=== PATIENT | male | born 1960 | race Caucasian/White ===

== ENCOUNTER → 2021-04-12 | Outpatient (CLI) | payer BC, OTHER | LOC: SJCVCIMAG 09:16 | PROVIDERS: ATTEND Internal Medicine Cardiovascular Disease | DX: I08.1 Rheumatic disorders of both mitral and tricuspid valves (principal); I11.9 Hypertensive heart disease without heart failure; I48.91 Unspecified atrial fibrillation ==

== ENCOUNTER → 2021-04-19 | Outpatient (CLI) | payer BC, OTHER ==
[~2021-04-19] VITALS: Ht 182.9 cm; Wt 127.0 kg
[~2021-04-19] MED LIST: ARMOUR THYROID60 M1 PO; BYSTOLIC 5 MG5 MG PO; LISINOPRIL10 MG PO; MELOXICAM7.5 MG PO; PACERONE 200 M200 M1 PO; ROSUVASTATIN CA20 MG PO; XARELTO20 MG PO
[2021-04-19 08:34] LABS: CALCIUM 8.8 mg/dL (8.5-10.1); CREATININE 1.6 mg/dL (0.7-1.3); POTASSIUM 4.7 mmol/L (3.5-5.1)
[2021-04-19 08:42] LABS: ALBUMIN 3.7 g/dL (3.4-5.0); TOTAL BILIRUBIN 0.6 mg/dL (0.2-1.0); TOTAL PROTEIN 6.7 g/dL (6.4-8.2)
--- NOTE | 2021-04-19 10:48 | TEE ---
[facility] [place] [address] TRANSESOPHAGEAL ECHOCARDIOGRAM Name: JOHN DYER Room #: REG [facility].#: [id number] Admission: 04/19/21 Attend Phys: Denver Gaitan MD, Discharge: Date of : 64 Report #: [id number] THIS REPORT FOR: cc: Ravi Cruz MD, Bryan W. MD Santiago, Patrick MD [facility] ~ APPROVED REPORT Study performed: 04/19/2021 07:41:38 EXAM: Comprehensive 2D, Doppler, and color-flow Echocardiogram Patient Location: Out-Patient Room #: 9 Status: routine BSA: 2.48 HR: 63 bpm BP: 115/78 mmHg Rhythm: Atrial Fibrillation Other Information Study Quality: Good Indications Atrial Fibrillation Echo Enhancing Agent Indication: Rule out Shunt Agent(s) / Amount(s) Used: Agitated Saline 7 cc Procedure After obtaining informed consent, patient underwent transesophageal echo in the [employer]. Type of Sedation : Conscious Sedation Sedation was administered by Nurse. Sedation start time: 0750 Case end Time: 804 Sedation was achieved intravenously with: Versed (8 mg) Fentanyl (75 mcg) Transesophageal probe was inserted and advanced into esophagus without difficulty by Denver Gaitan MD. Echo enhancement indication: R/O Septal defect. Echo enhancement agent administered: Agitated Saline The ELIER was performed without complications. Synchronized Cardioversion attempted: Unsuccessful at 120 Joules x1, [facility] [address] [place] [address] TRANSESOPHAGEAL ECHOCARDIOGRAM Name: JOHN DYER [id number] Admission: 04/19/21 Attend Phys: Denver Gaitan, Discharge: Date of : 64 Report #: [id number] 150 Joules x 1 and 200 Joules x 1 Throughout the procedure, the blood pressure, pulse oximetry, cardiac rhythm, and rate were monitored. The patient tolerated the procedure without adverse effects. Recovery from conscious sedation was uneventful and vital signs were stable. Left Ventricle The left ventricle is normal size. There is normal LV segmental wall motion. There is normal left ventricular wall thickness. Left ventricular systolic function is borderline. LVEF is 50%. Right Ventricle The right ventricle is normal size. The right ventricular systolic function is normal. Atria The left atrium size is normal. Interatrial septum is intact with evidence of a small PFO The right atrium size is normal. Aortic Valve The aortic valve is normal in structure. No aortic regurgitation is present. There is no aortic valvular stenosis. Mitral Valve The mitral valve is normal in structure. Mild mitral regurgitation. No evidence of mitral valve stenosis. Tricuspid Valve The tricuspid valve is normal in structure. There is no tricuspid valve regurgitation noted. Pulmonic Valve The pulmonary valve is normal in structure. There is no pulmonic valvular regurgitation. Great Vessels The aortic root is normal in size. Pericardium There is no pericardial effusion. <Conclusion> Consent was obtained Timeout performed Esophageal probe was advanced without difficulty [facility] [address] [place] [address] TRANSESOPHAGEAL ECHOCARDIOGRAM Name: JOHN DYER Room #: REG [facility].#: [id number] Admission: 04/19/21 Attend Phys: Denver Gaitan, Discharge: Date of : 64 Report #: [id number] normal left ventricular size/wall thickness and ejection fraction 50% Normal right ventricular size/function Normal atrial size Color-flow Doppler study was performed of the aortic/mitral/tricuspid/pulmonary valve Normal aortic valve structure and function Mild mitral valve insufficiency No tricuspid valve insufficiency Normal aortic root size No pericardial effusion A small PFO detected by bubble study. Patient was shocked 120/150/2 100 J of biphasic mode. Patient remained and atrial fibrillation Patient tolerated procedure well. <ELECTRONICALLY SIGNED> By: Denver Gaitan MD, FACC 04/19/21 1048 1048 1048 Denver Gaitan MD, FACC /INF
== END | disposition home or self-care (01) ==
LOC: CATH 06:28
PROVIDERS: ATTEND Internal Medicine
DX: I48.91 Unspecified atrial fibrillation (principal); I34.9 Nonrheumatic mitral valve disorder, unspecified; I10 Essential (primary) hypertension; E78.00 Pure hypercholesterolemia, unspecified; Z98.890 Other specified postprocedural states; Z79.899 Other long term (current) drug therapy; Z79.01 Long term (current) use of anticoagulants; Z82.49 Family history of ischemic heart disease and other diseases of the circulatory system

== ENCOUNTER → 2021-05-28 | Outpatient (CLI) | payer BC, OTHER ==
[~2021-05-28] VITALS: Ht 182.9 cm; Wt 122.7 kg
--- NOTE | ~2021-05-28 | CATHLAB ---
[facility] [place] [place] [address] INVASIVE PROCEDURE REPORT Name: JOHN DYER Room #: REG [facility] M..#: [id number] Admission: 05/28/21 Attend Phys: Denver Gaitan MD, Discharge: Date of : 64 Report #: [id number] THIS REPORT FOR: cc: Ravi Cruz MD, Bryan W. MD Santiago, Patrick MD [facility] ~ DATE OF SERVICE: 05/28/2021 ELECTRICAL CARDIOVERSION DESCRIPTION OF PROCEDURE: The patient presented with a known history of atrial fibrillation. A timeout was performed. Pads were put in the anteroposterior position. After appropriate sedation and consent, the patient was successfully cardioverted to normal sinus rhythm after 120-150 joules in a biphasic mode. The patient converted to sinus rhythm. The patient tolerated the procedure well. A 12-lead electrocardiogram pending. By: 28 Denver Gaitan MD, FACC /nt
[2021-05-28 07:20] VITALS: BP 122/62
--- NOTE | 2021-05-28 08:48 | NUR ---
PT RESTING POST CV, AT BS, ASKING FOR ICE CHIPS, VSS
--- NOTE | 2021-05-28 10:40 | EKG ---
[address] [address] ELECTROCARDIOGRAM REPORT Name: JOHN DYER Room #: [facility] [id number] Admission: 05/28/21 Attend Phys: Denver Gaitan MD, Discharge: Date of : 64 Report #: [id number] [facility] Test Date: 2021-05-28 Test Time: 08:56:18 Pat Name: JOHN DYER Department: Room: Gender: Children[facility]S Program Coordinator: ANGELI : 1960 Requested By: Denver Gaitan Order Number: [id number] MD: Denver Gaitan Measurements Intervals [place] Rate: 45 P: 40 CA: 226 QRS: 43 QRSD: 97 T: 1 QT: 476 QTc: 412 Interpretive Statements Sinus bradycardia Prolonged CA interval No previous ECG available for comparison Electronically Signed On 05-28-2021 10:39:55 CDT by Denver Gaitan [email or web address] <ELECTRONICALLY SIGNED> By: Denver Gaitan MD, [facility] 05/28/21 1039 [id number] 0856 Denver Gaitan MD, FACC /EPI
== END | disposition home or self-care (01) ==
LOC: CATH 06:34
PROVIDERS: ATTEND Internal Medicine
DX: I48.91 Unspecified atrial fibrillation (principal); I10 Essential (primary) hypertension; E78.00 Pure hypercholesterolemia, unspecified; E78.5 Hyperlipidemia, unspecified; Z98.890 Other specified postprocedural states; Z79.899 Other long term (current) drug therapy; Z87.442 Personal history of urinary calculi; Z90.49 Acquired absence of other specified parts of digestive tract

== ENCOUNTER → 2021-07-22 | Outpatient (CLI) | payer BC, OTHER | LOC: SJCVCIMAG 11:16 | PROVIDERS: ATTEND Internal Medicine Cardiovascular Disease | DX: R06.00 Dyspnea, unspecified (principal); I10 Essential (primary) hypertension ==